=== PATIENT | female | born 1935 | race Caucasian/White ===

== ENCOUNTER 2022-11-30 11:42 | Emergency (ER) | payer OTHER ==
[2022-11-30 11:51] VITALS: BP 105/61; PULSE 71; RESP 18; TEMP 98; BMI 29.2
[2022-11-30] MEDS ORDERED: SODIUM CHLORIDE 0.9% 1000 ML INFUS.BAG IV ONE (12:06)
[2022-11-30] MEDS ORDERED: HEPATITIS B VIRUS VACCINE-PF 20 MCG/1ML PRE-FILLED SYRINGE IM ONE (12:25)
[2022-11-30 12:38] LABS: BASO % 0.4 % (0-2.0); EOS % 1.6 % (0-4.5); HEMATOCRIT 41.3 % (32.4-45.2); HEMOGLOBIN 13.9 GM/dL (10.7-15.3); LYMPH % 25.9 % (8-40); MCH 28.9 pg (25.7-33.7); MCHC 33.6 g/dl (32.0-36.0); MEAN CELL VOLUME 86.2 fl (80-96); MEAN PLT VOLUME 6.6 fl (7.5-11.1); MONO % 8.7 % (3.8-10.2); NEUT % 63.4 % (42.8-82.8); PLATELET COUNT 279 10^3/uL (134-434); RBC 4.79 M/mm3 (3.60-5.2); RDW 15.1 % (11.6-15.6); WHITE BLOOD COUNT 5.4 K/mm3 (4.0-10.0)
[2022-11-30 13:08] LABS: CALCIUM 9.3 mg/dL (8.5-10.1)
[2022-11-30 13:09] LABS: ALBUMIN 3.8 g/dl (3.4-5.0); BLOOD UREA NITROGEN 17.3 mg/dL (7-18)
[2022-11-30 13:12] LABS: CREATININE 0.8 mg/dL (0.55-1.3)
[2022-11-30 13:13] LABS: TOT PROT 7.8 g/dl (6.4-8.2)
[2022-11-30 13:14] LABS: BILIRUBIN,TOTAL 0.6 mg/dL (0.2-1)
== END 2022-11-30 14:44 | disposition home or self-care (01) ==
LOC: JER 11:42
PROC: 3E0234Z Introduction of Serum, Toxoid and Vaccine into Muscle, Percutaneous Approach (ICD-10-PCS; principal; 2022-11-30)
DX: R05.1 Acute cough (principal); R06.02 Shortness of breath; R06.2 Wheezing
CPT/HCPCS: 0241U-QW; 36415; 71250-TC; 80053; 84484; 85025; 99284-25